=== PATIENT | male | born 1940 | race Caucasian/White ===

== ENCOUNTER 2022-01-27 13:34 | Inpatient (IN) | payer BC ==
[2022-01-27] MEDS ORDERED: ACETAMINOPHEN 1000 MG/100 ML BAG IVPB ONE (16:39)
[2022-01-27] MEDS ORDERED: ACETAMINOPHEN INJECTION 100 ML IVPB ONE (17:24)
[2022-01-27 17:35] LABS: ALBUMIN 2.9 g/dl (3.4-5.0); BLOOD UREA NITROGEN 31.3 mg/dL (7-18); CALCIUM 7.9 mg/dL (8.5-10.1); MAGNESIUM 2.6 mg/dL (1.8-2.4)
[2022-01-27 17:40] LABS: BILIRUBIN,TOTAL 2.1 mg/dL (0.2-1); TOT PROT 6.8 g/dl (6.4-8.2)
[2022-01-27 17:50] LABS: BASO % 0.6 % (0-2.0); EOS % 0.3 % (0-4.5); HEMATOCRIT 14.5 % (35.4-49); LYMPH % 13.3 % (8-40); MCHC 44.4 g/dl (32.0-35.9); MEAN CELL VOLUME 123.7 fl (80-96); MEAN PLT VOLUME 8.8 fl (7.5-11.1); MONO % 7.8 % (3.8-10.2); PLATELET COUNT 371 10^3/uL (134-434); RBC 1.17 M/mm3 (4.00-5.60); RDW 15.8 % (11.9-15.9); WHITE BLOOD COUNT 11.1 K/mm3 (4.0-10.0)
[2022-01-27] MEDS ORDERED: SODIUM CHLORIDE 0.9% 500 ML INFUS.BAG IV ONE (17:55)
[2022-01-27 18:01] LABS: MCH 54.9 pg (25.7-33.7)
[2022-01-27 18:03] LABS: HEMOGLOBIN 6.4 GM/dL (11.7-16.9)
[2022-01-27 18:30] LABS: ANISOCYTOSIS 2+; OVALOCYTE 1+; TARGET CELLS 1+
[2022-01-27 18:31] LABS: MACROCYTOSIS 3+
[2022-01-27] MEDS: CARBIDOPA/LEVODOPA 25/250 TABLET (FP) PO SCH (23:48)
[2022-01-28 00:55] LABS: EPI CELLS 4 /uL (0-25.1); HYALINE CASTS 1 /uL (0-3.1); PH,URINE 5.5 (5.0-8.0); URINE APPEARANCE CLEAR; URINE BACTERIA 2 /uL (0-1359); URINE BILIRUBIN NEGATIVE (NEGATIVE); URINE COLOR YELLOW; URINE GLUCOSE (UA) NEGATIVE (NEGATIVE); URINE KETONE NEGATIVE (NEGATIVE); URINE LEUK ESTERASE 1+ (NEGATIVE); URINE NITRITE NEGATIVE (NEGATIVE); URINE PROTEIN TRACE (NEGATIVE); URINE RBC 31 /uL (0-23.9); URINE WBC 80 /uL (0-25.8)
[2022-01-28] MEDS ORDERED: SODIUM CHLORIDE 1,000 ML IV SCH (01:15)
[2022-01-28] MEDS: CARBIDOPA/LEVODOPA 25/250 TABLET (FP) PO SCH ×3 (07:38→21:48)
[2022-01-28 09:38] LABS: CALCIUM 7.4 mg/dL (8.5-10.1)
[2022-01-28 09:39] LABS: ALBUMIN 2.5 g/dl (3.4-5.0); BLOOD UREA NITROGEN 23.9 mg/dL (7-18)
[2022-01-28 09:41] LABS: BASO % 0.7 % (0-2.0); EOS % 0.2 % (0-4.5); HEMATOCRIT 10.8 % (35.4-49); LYMPH % 12.3 % (8-40); MEAN CELL VOLUME 136.1 fl (80-96); MEAN PLT VOLUME 7.8 fl (7.5-11.1); NEUT % 80.8 % (42.8-82.8); PLATELET COUNT 477 10^3/uL (134-434); RBC 0.79 M/mm3 (4.00-5.60); RDW 15.6 % (11.9-15.9)
[2022-01-28 09:42] LABS: CREATININE 0.8 mg/dL (0.55-1.3); MCH 75.7 pg (25.7-33.7); MCHC 55.7 g/dl (32.0-35.9)
[2022-01-28] MEDS ORDERED: ACETAMINOPHEN 325 MG TABLET (FP) PO ONE ×2 (10:15→11:41)
[2022-01-28] MEDS ORDERED: ACETAMINOPHEN 500 MG TABLET (FP) PO PRN (11:41)
[2022-01-28] MEDS ORDERED: FUROSEMIDE 40 MG/4 ML INJECTABLE VIAL IVPUSH ONE (11:42)
[2022-01-28 12:19] LABS: BILIRUBIN,DIRECT 0.5 mg/dL (0.0-0.2)
[2022-01-28] MEDS: POLYETHYLENE GLYCOL (HEALTHYLAX) 3350 17 GM PACKET PO SCH ×2 (15:18→21:47)
[2022-01-29] MEDS: CARBIDOPA/LEVODOPA 25/250 TABLET (FP) PO SCH ×3 (06:12→17:27)
[2022-01-29] MEDS: POLYETHYLENE GLYCOL (HEALTHYLAX) 3350 17 GM PACKET PO SCH ×3 (06:14→21:44)
[2022-01-29 08:15] LABS: INR 1.17 (0.83-1.09); PROTHROMBIN TIME (PATIENT) 13.5 SEC (9.7-13.0)
[2022-01-29 08:19] LABS: BLOOD UREA NITROGEN 22.4 mg/dL (7-18); CALCIUM 7.8 mg/dL (8.5-10.1)
[2022-01-29 08:22] LABS: CREATININE 0.9 mg/dL (0.55-1.3); URIC ACID 5.5 mg/dL (2.6-7.2)
[2022-01-29] MEDS: PANTOPRAZOLE SODIUM 40 MG VIAL IVPUSH SCH (09:22)
[2022-01-29 09:32] LABS: BASO % 0.8 % (0-2.0); EOS % 0.4 % (0-4.5); HEMOGLOBIN 8.4 GM/dL (11.7-16.9); MEAN PLT VOLUME 8.2 fl (7.5-11.1); MONO % 5.6 % (3.8-10.2); NEUT % 80.2 % (42.8-82.8); PLATELET COUNT 440 10^3/uL (134-434); RBC 0.82 M/mm3 (4.00-5.60); RETICULOCYTES 5.32 % (0.5-1.5); WHITE BLOOD COUNT 8.7 K/mm3 (4.0-10.0)
[2022-01-29 10:48] LABS: MCHC 83.2 g/dl (32.0-35.9)
[2022-01-30] MEDS: POLYETHYLENE GLYCOL (HEALTHYLAX) 3350 17 GM PACKET PO SCH ×3 (06:16→21:23)
[2022-01-30] MEDS: CARBIDOPA/LEVODOPA 25/250 TABLET (FP) PO SCH ×3 (06:16→17:51)
[2022-01-30] MEDS: PANTOPRAZOLE SODIUM 40 MG VIAL IVPUSH SCH (10:36)
[2022-01-30 10:44] LABS: BASO % 0.4 % (0-2.0); EOS % 0.2 % (0-4.5); HEMATOCRIT 15.8 % (35.4-49); LYMPH % 9.3 % (8-40); MEAN CELL VOLUME 119.6 fl (80-96); MEAN PLT VOLUME 8.3 fl (7.5-11.1); MONO % 6.6 % (3.8-10.2); NEUT % 83.5 % (42.8-82.8); PLATELET COUNT 506 10^3/uL (134-434); RBC 1.32 M/mm3 (4.00-5.60); RDW 17.6 % (11.9-15.9); WHITE BLOOD COUNT 9.9 K/mm3 (4.0-10.0)
[2022-01-30] MEDS: FOLIC ACID 1 MG TABLET (FP) PO SCH (12:58)
[2022-01-30] MEDS: CYANOCOBALAMIN 1,000 MCG TABLET (FP) PO SCH (12:58)
[2022-01-31] MEDS: CARBIDOPA/LEVODOPA 25/250 TABLET (FP) PO SCH ×3 (06:09→17:24)
[2022-01-31] MEDS: POLYETHYLENE GLYCOL (HEALTHYLAX) 3350 17 GM PACKET PO SCH ×3 (06:09→22:07)
[2022-01-31 09:37] LABS: BASO % 0.7 % (0-2.0); EOS % 0.4 % (0-4.5); HEMATOCRIT 13.8 % (35.4-49); HEMOGLOBIN 7.4 GM/dL (11.7-16.9); LYMPH % 9.5 % (8-40); MEAN PLT VOLUME 8.4 fl (7.5-11.1); MONO % 7.2 % (3.8-10.2); NEUT % 82.2 % (42.8-82.8); PLATELET COUNT 482 10^3/uL (134-434)
[2022-01-31] MEDS: CYANOCOBALAMIN 1,000 MCG TABLET (FP) PO SCH (10:26)
[2022-01-31] MEDS: FOLIC ACID 1 MG TABLET (FP) PO SCH (10:26)
[2022-02-01] MEDS: POLYETHYLENE GLYCOL (HEALTHYLAX) 3350 17 GM PACKET PO SCH ×3 (05:54→21:19)
[2022-02-01] MEDS: CARBIDOPA/LEVODOPA 25/250 TABLET (FP) PO SCH ×3 (06:22→16:53)
[2022-02-01 10:47] LABS: HEMATOCRIT 16.5 % (35.4-49); MCH 32.5 pg (25.7-33.7); RDW 16.4 % (11.9-15.9); WHITE BLOOD COUNT 9.3 K/mm3 (4.0-10.0)
[2022-02-01] MEDS: CYANOCOBALAMIN 1,000 MCG TABLET (FP) PO SCH (10:50)
[2022-02-01] MEDS: FOLIC ACID 1 MG TABLET (FP) PO SCH (10:50)
[2022-02-01 10:51] LABS: BASO % 0.8 % (0-2.0); EOS % 0.2 % (0-4.5); LYMPH % 10.1 % (8-40); MONO % 7.4 % (3.8-10.2); NEUT % 81.5 % (42.8-82.8); PLATELET COUNT 420 10^3/uL (134-434); RBC 1.36 M/mm3 (4.00-5.60)
[2022-02-01] MEDS ORDERED: FUROSEMIDE 40 MG/4 ML INJECTABLE VIAL IVPUSH ONE (10:58)
[2022-02-01 10:59] LABS: HEMOGLOBIN 5.6 GM/dL (11.7-16.9)
[2022-02-01 11:42] LABS: ANISOCYTOSIS 0; HELMET CELLS 0; HOWELL-JOLLY BODIES 0; MACROCYTOSIS 0; OVALOCYTE 0; ROULEAU 0; SICKELED CELLS 0; TARGET CELLS 0; TEAR DROP CELLS 0; TOXIC GRANULATION 0
[2022-02-01 11:53] LABS: MEAN CELL VOLUME 113.3 fl (80-96)
[2022-02-01 11:55] LABS: MCHC 33.6 g/dl (32.0-35.9)
[2022-02-02] MEDS: POLYETHYLENE GLYCOL (HEALTHYLAX) 3350 17 GM PACKET PO SCH ×3 (05:07→21:21)
[2022-02-02] MEDS: CARBIDOPA/LEVODOPA 25/250 TABLET (FP) PO SCH ×3 (06:07→17:30)
[2022-02-02 09:33] LABS: CHLORIDE 106 mmol/L (98-107); SODIUM 140 mmol/L (136-145)
[2022-02-02 09:36] LABS: ALBUMIN 2.7 g/dl (3.4-5.0); ANION GAP 4 MMOL/L (8-16); BLOOD UREA NITROGEN 29.7 mg/dL (7-18); CO2 30 mmol/L (21-32); GLUCOSE,RANDOM 92 mg/dL (74-106)
[2022-02-02 09:39] LABS: SGOT/AST 17 U/L (15-37); SGPT/ALT < 6 U/L (13-61)
[2022-02-02 09:40] LABS: BILIRUBIN,TOTAL 3.2 mg/dL (0.2-1); TOT PROT 6.1 g/dl (6.4-8.2)
[2022-02-02 09:42] LABS: ALK PHOS 97 U/L (45-117)
[2022-02-02] MEDS: CYANOCOBALAMIN 1,000 MCG TABLET (FP) PO SCH (10:54)
[2022-02-02] MEDS: FOLIC ACID 1 MG TABLET (FP) PO SCH (10:54)
[2022-02-02 11:59] LABS: RBC 2.27 M/mm3 (4.00-5.60); WHITE BLOOD COUNT 9.8 K/mm3 (4.0-10.0)
[2022-02-02 12:00] LABS: HEMATOCRIT 21.3 % (35.4-49); HEMOGLOBIN 7.3 GM/dL (11.7-16.9); MCH 32.1 pg (25.7-33.7); MCHC 34.2 g/dl (32.0-35.9)
[2022-02-02 12:01] LABS: MEAN PLT VOLUME 7.9 fl (7.5-11.1); PLATELET COUNT 402 10^3/uL (134-434); RDW 18.1 % (11.9-15.9)
[2022-02-02 12:13] LABS: ANISOCYTOSIS 0; HELMET CELLS 0; HOWELL-JOLLY BODIES 0; MACROCYTOSIS 0; OVALOCYTE 0; ROULEAU 0; SICKELED CELLS 0; TARGET CELLS 0; TEAR DROP CELLS 0; TOXIC GRANULATION 0
[2022-02-03] MEDS: POLYETHYLENE GLYCOL (HEALTHYLAX) 3350 17 GM PACKET PO SCH ×3 (05:10→21:11)
[2022-02-03] MEDS: CARBIDOPA/LEVODOPA 25/250 TABLET (FP) PO SCH ×3 (06:16→16:26)
[2022-02-03] MEDS: CYANOCOBALAMIN 1,000 MCG TABLET (FP) PO SCH (10:03)
[2022-02-03] MEDS: FOLIC ACID 1 MG TABLET (FP) PO SCH (10:03)
[2022-02-03 10:45] LABS: BASO % 0.9 % (0-2.0); HEMATOCRIT 11.6 % (35.4-49); HEMOGLOBIN 8.8 GM/dL (11.7-16.9); LYMPH % 9.8 % (8-40); MEAN CELL VOLUME 126.8 fl (80-96); MEAN PLT VOLUME 8.3 fl (7.5-11.1); MONO % 7.8 % (3.8-10.2); NEUT % 80.5 % (42.8-82.8); PLATELET COUNT 396 10^3/uL (134-434); RBC 0.91 M/mm3 (4.00-5.60); RDW 18.1 % (11.9-15.9); WHITE BLOOD COUNT 7.9 K/mm3 (4.0-10.0)
[2022-02-03 10:48] LABS: MCHC 75.7 g/dl (32.0-35.9)
[2022-02-03 10:50] LABS: ADD RBC MORPHOLOGY YES
[2022-02-03 12:51] VITALS: BMI 19.3
[2022-02-03 17:20] LABS: BILIRUBIN,DIRECT 0.7 mg/dL (0.0-0.2)
[2022-02-03 17:23] LABS: BILIRUBIN,TOTAL 2.7 mg/dL (0.2-1)
[2022-02-03 20:13] LABS: HEMATOCRIT 23.2 % (35.4-49); HEMOGLOBIN 8.1 GM/dL (11.7-16.9); MCH 33.7 pg (25.7-33.7); MCHC 34.9 g/dl (32.0-35.9); MEAN CELL VOLUME 96.5 fl (80-96); MEAN PLT VOLUME 9.5 fl (7.5-11.1); PLATELET COUNT 217 10^3/uL (134-434); RDW 17.3 % (11.9-15.9); RETICULOCYTES 5.73 % (0.5-1.5); WHITE BLOOD COUNT 12.1 K/mm3 (4.0-10.0)
[2022-02-03 21:41] VITALS: RESP 20
[2022-02-04] MEDS: CARBIDOPA/LEVODOPA 25/250 TABLET (FP) PO SCH ×3 (06:09→17:35)
[2022-02-04] MEDS: POLYETHYLENE GLYCOL (HEALTHYLAX) 3350 17 GM PACKET PO SCH ×2 (06:10→13:26)
[2022-02-04 06:13] VITALS: PULSE 74
[2022-02-04 08:23] LABS: BILIRUBIN,DIRECT 0.6 mg/dL (0.0-0.2)
[2022-02-04 09:25] LABS: BASO % 0.6 % (0-2.0); EOS % 0.6 % (0-4.5); HEMATOCRIT 10.1 % (35.4-49); LYMPH % 10.8 % (8-40); MEAN CELL VOLUME 129.5 fl (80-96); MEAN PLT VOLUME 8.3 fl (7.5-11.1); MONO % 8.5 % (3.8-10.2); NEUT % 79.5 % (42.8-82.8); PLATELET COUNT 383 10^3/uL (134-434); RBC 0.78 M/mm3 (4.00-5.60); RDW 18.9 % (11.9-15.9); WHITE BLOOD COUNT 6.9 K/mm3 (4.0-10.0)
[2022-02-04] MEDS: FOLIC ACID 1 MG TABLET (FP) PO SCH (10:39)
[2022-02-04] MEDS: CYANOCOBALAMIN 1,000 MCG TABLET (FP) PO SCH (10:39)
[2022-02-04 11:06] LABS: HEMOGLOBIN 7.1 GM/dL (11.7-16.9)
[2022-02-04 11:07] LABS: MCH 41.4 pg (25.7-33.7); MCHC 38.5 g/dl (32.0-35.9)
[2022-02-04 11:12] LABS: ANISOCYTOSIS 0; HELMET CELLS 0; HOWELL-JOLLY BODIES 0; MACROCYTOSIS 0; OVALOCYTE 0; ROULEAU 0; SICKELED CELLS 0; TARGET CELLS 0; TEAR DROP CELLS 0; TOXIC GRANULATION 0
[2022-02-04 14:06] VITALS: BP 112/68; TEMP 98.3
== END 2022-02-04 21:35 | disposition short-term general hospital (02) | DRG 810 ==
LOC: JER 13:34 → JERBED 19:01 → J7W 01-28 02:24 → OBSVTOIN 01-29 15:27
PROVIDERS: ADMIT Internal Medicine; ATTEND Internal Medicine
PROC: 30233N1 Transfusion of Nonautologous Red Blood Cells into Peripheral Vein, Percutaneous Approach (ICD-10-PCS; principal; 2022-01-28)
DX: D59.12 Cold autoimmune hemolytic anemia (principal); D47.2 Monoclonal gammopathy; G20 Parkinson's disease; R29.6 Repeated falls
CPT/HCPCS: 0241U-QW; 36415; 36430; 36511; 70450-TC; 71045-TC-FY; 71250-TC; 72125-TC; 72170-TC-FY; 74176-TC; 80048; 80053; 81003; 82136; 82247; 82248; 82272; 82607; 82728; 82746; 82784; 83010; 83540; 83550; 83615; 83735; 83918; 84155; 84165; 84443; 84484; 84550; 85025; 85045; 85384; 85610; 85651; 86140; 86334; 86850; 86870; 86880; 86900; 86901; 86902; 86922; 87086; 93005; 93010; 93306-TC; 97116-GP; 97161-GP; 99285-25; C9803-CS; G0378; P9016; P9058; U0003; U0005